=== PATIENT | male | born 1960 | race Two or more races ===

== ENCOUNTER → 2018-05-29 | Outpatient (CLI) | payer BC | LOC: M WUC 14:43 | DX: M17.12 Unilateral primary osteoarthritis, left knee (principal); S76.112A Strain of left quadriceps muscle, fascia and tendon, initial encounter; X58.XXXA Exposure to other specified factors, initial encounter; Y92.9 Unspecified place or not applicable | CPT/HCPCS: 73564 ==

== ENCOUNTER → 2019-06-14 | Outpatient (CLI) | payer OTHER ==
[2019-06-14 07:05] LABS: BASO % 0.3 % (0.0-1.0); EOS # 0.3 10^3/uL (0.0-0.5); EOS % 4.4 % (0.0-3.0); HEMATOCRIT 45.9 % (42.0-52.0); HEMOGLOBIN 15.1 g/dl (13.5-17.5); LYMPH # 2.4 10^3/uL (1.5-5.0); LYMPH % 32.6 % (24.0-44.0); MEAN CORPUSCULAR HEMOGLOBIN 29.7 pg (27.0-33.0); MEAN CORPUSCULAR HGB CONC 32.9 g/dl (32.0-36.5); MEAN CORPUSCULAR VOLUME 90.4 fl (80.0-96.0); MONO # 0.9 10^3/uL (0.0-0.8); MONO % 11.7 % (0.0-5.0); NEUTROPHILS # 3.8 10^3/uL (1.5-8.5); NEUTROPHILS % 50.9 % (36.0-66.0); PLATELET COUNT, AUTOMATED 206 10^3/uL (150-450); RED BLOOD COUNT 5.08 10^6/uL (4.30-6.10); WHITE BLOOD COUNT 7.5 10^3/uL (4.0-10.0)
[2019-06-14 07:40] LABS: ALBUMIN 3.8 GM/DL (3.2-5.2); ALT/SGPT 22 U/L (12-78); BILIRUBIN,TOTAL 0.5 MG/DL (0.2-1.0); BLOOD UREA NITROGEN 14 MG/DL (7-18); CALCIUM LEVEL 9.1 MG/DL (8.8-10.2); CARBON DIOXIDE LEVEL 26 MEQ/L (21-32); CHLORIDE LEVEL 105 MEQ/L (98-107); CHOLESTEROL LEVEL 218 MG/DL (<200); CHOLESTEROL RISK RATIO 5.736 (<5); CREATININE FOR GFR 1.12 MG/DL (0.70-1.30); GLOMERULAR FILTRATION RATE > 60.0 (>49); GLUCOSE, FASTING 101 MG/DL (70-100); HDL CHOLESTEROL 38 MG/DL (>40); LDL CHOLESTEROL 148 MG/DL (<100); NON-HDL-C 180 MG/DL; POTASSIUM SERUM 4.3 MEQ/L (3.5-5.1); SODIUM LEVEL 139 MEQ/L (136-145); TOTAL PROTEIN 7.7 GM/DL (6.4-8.2); TRIGLYCERIDES LEVEL 161 MG/DL (<150)
== END ==
LOC: M LAB 06:37
PROVIDERS: ATTEND Family Medicine
DX: Z00.00 Encounter for general adult medical examination without abnormal findings (principal)

== ENCOUNTER → 2019-08-10 | Outpatient (CLI) | payer OTHER ==
--- NOTE | 2019-08-11 08:55 | REP ---
RIGHT FOOT SERIES: Four views. HISTORY: Pain. FINDINGS: There is minimal spurring at the 1st MTP joint. There is soft tissue swelling about the first MTP joint medially. No erosive change is seen. There is old fragmentation of the medial sesamoid at this articulation. Plantar calcaneal spurring is noted. Overall mineralization pattern is normal. There is a small subcortical cyst in the proximal end of the 5th metatarsal. There is mild midfoot spurring. IMPRESSION: 1st MTP joint spurring and soft tissue swelling. Heel spur. Mild midfoot osteoarthritis. Electronically Signed by Wyatt Cantu MD 08/11/2019 10:04 A
--- NOTE | 2019-08-11 08:56 | REP ---
RIGHT ANKLE SERIES: Four views. HISTORY: There is tibiotalar osteoarthritic spurring. Plantar heel spurring is seen. There is talonavicular osteoarthritic spurring as well. Ankle mortise is intact. No erosive change is visible. Overall mineralization pattern is normal. IMPRESSION: Osteoarthritic changes at the ankle and midfoot. Heel spurring. Electronically Signed by Wyatt Cantu MD 08/11/2019 10:03 A
== END ==
LOC: M WUC 13:40
PROVIDERS: ATTEND Physician Assistant
DX: M77.31 Calcaneal spur, right foot (principal); M19.071 Primary osteoarthritis, right ankle and foot